=== PATIENT | female | born 1935 | race African-American/Black ===

== ENCOUNTER 2019-05-14 17:15 | Emergency (ER) | payer OTHER ==
[~2019-05-14] VITALS: Ht 162.6 cm; Wt 68.0 kg
[~2019-05-14 17:15] MED LIST: AMLO5TAB4 PO; ATOR20TA65 PO; BENA40TA9 PO; CLORAZEPATE; FURO40TA5 PO; IPRA3AMP9 NEB; LEVO500T2 MT; MECL-159 PO; METF-416 PO; METO200T48 PO; MONT10TA21 PO; P20 PO; POTA10TA11 PO; TIOT18CA3 INH; albuterol; b12
[2019-05-14 18:27] LABS: BG BASE EXCESS 4.9 mmol/L (-2.0-2.0); BG CARBOXYHEMOGLOBIN 0.4 % (0.5-1.5); BG DEOXYHEMOGLOBIN 5.1 % (0.0-5.0); BG HCO3 ACT 29.6 mmol/L (22.0-26.0); BG METHEMOGLOBIN 0.4 % (0.0-1.5); BG OXYGEN SATURATION 94.9 % (92.0-98.5); BG OXYHEMOGLOBIN 94.1 % (94.0-97.0); BG PCO2 44.2 mmHg (35.0-45.0); BG PH 7.444 (7.350-7.450); BG PO2 71.2 mmHg (75.0-100.0); BG SAMPLE SITE RIGHT RADIAL; BG TOTAL HEMOGLOBIN 13.5 g/dL (12.0-18.0); BG VENT MODE NASAL CANNULA
[2019-05-14 18:53] LABS: HEMATOCRIT. 42.6 % (36.0-48.0); HEMOGLOBIN. 13.1 g/dL (12.0-16.0); MEAN CORPUSCULAR HEMOGLOBIN 26.6 pg (28.0-32.0); MEAN CORPUSCULAR VOLUME 86.7 fL (81.0-99.0); MEAN PLATELET VOLUME 8.3 fl (7.4-10.4); PLATELET 221 x1000/uL (130-400); RED BLOOD CELL COUNT 4.92 mill/uL (4.2-5.4); RED CELL DISTRIBUTION WIDTH 16.8 % (11.6-14.6)
[2019-05-14 18:56] LABS: CHLORIDE 92 mEq/L (98-107)
[2019-05-14 19:07] LABS: BETA HYDROXYBUTYRATE 0.1 mMol/L (0.0-0.3)
[2019-05-14] MEDS ORDERED: SODIUM CHLORIDE 0.9% 500 ML IV ONE (19:14)
[2019-05-14 19:28] LABS: CLARITY URINE CLEAR (CLEAR); COLOR URINE YELLOW (YELLOW); KETONES URINE NEGATIVE (NEGATIVE); LEUKOCYTE ESTERASE URINE NEGATIVE (NEGATIVE); NITRITE URINE NEGATIVE (NEGATIVE); OCCULT BLOOD URINE NEGATIVE (NEGATIVE); PH URINE 6.5 (4.5-8.0); PROTEIN URINE NEGATIVE (NEGATIVE); SPECIFIC GRAVITY URINE 1.033 (1.005-1.030); UROBILINOGEN URINE 0.2 E.U./dL (0.2-1.0)
[2019-05-14] MEDS ORDERED: INSULIN REGULAR (HUMULIN R) 300UNITS/3ML IV ONE (19:30)
[2019-05-14] MEDS ORDERED: INSULIN REGULAR (HUMULIN R) 300UNITS/3ML IV NR (20:30)
[2019-05-14 20:55] LABS: PLATELET ESTIMATE NORMAL
[2019-05-14 22:26] VITALS: BP 117/52
== END 2019-05-14 22:37 | disposition home or self-care (01) ==
LOC: ER 17:15
DX: E11.65 Type 2 diabetes mellitus with hyperglycemia (principal); E87.8 Other disorders of electrolyte and fluid balance, not elsewhere classified; I10 Essential (primary) hypertension; J18.9 Pneumonia, unspecified organism; R35.8 Other polyuria; Z88.0 Allergy status to penicillin; Z79.899 Other long term (current) drug therapy
CPT/HCPCS: 36415; 36600; 71045; 80053; 81003; 82010; 82375; 82805; 82962; 83880; 84484; 85025; 93005; 96361; 96374; 99285; J1815; J7040